=== PATIENT | male | born 1995 | race African-American/Black ===

== ENCOUNTER 2017-10-12 22:27 | Emergency (ER) | payer OTHER ==
[~2017-10-12] VITALS: Ht 172.7 cm; Wt 72.6 kg
[~2017-10-12 22:27] MED LIST: IBUPROFEN 800800 MG PO; NORCO 5-325 TA1 EACH PO
[2017-10-12] MEDS ORDERED: IBUPROFEN 800800 M1 PO (23:13)
[2017-10-12 23:34] VITALS: BP 114/66
== END 2017-10-12 23:35 | disposition home or self-care (01) ==
LOC: ER 22:27
DX: M25.532 Pain in left wrist (principal); R20.2 Paresthesia of skin